=== PATIENT | female | born 1995 | race Caucasian/White ===

== ENCOUNTER 2016-11-22 12:47 | Emergency (ER) | payer BC, OTHER ==
[~2016-11-22] VITALS: Ht 157.5 cm; Wt 94.5 kg
[~2016-11-22 12:47] MED LIST: ETON1IMP2 INTRAD
[2016-11-22 12:51] VITALS: TEMP 36.6; Ht 157.5 cm; Wt 94.5 kg
[2016-11-22] MEDS ORDERED: SODIUM CHLORIDE 0.9% 1000ML 1,000 ML IV STA (13:26)
[2016-11-22] MEDS ORDERED: ONDANSETRON INJ 2 MG/ML 2 ML VIAL IV STA (13:26)
[2016-11-22] MEDS ORDERED: MoRPHine SULFATE 4 MG/ML 1 ML CARP\\VIAL IV STA (13:26)
[2016-11-22] MEDS ORDERED: JNLF153028 PO (13:38)
[2016-11-22 13:45] LABS: URINE APPEARANCE CLEAR (CLEAR); URINE BILIRUBIN NEG (NEG); URINE COLOR YELLOW; URINE NITRITE NEG (NEG); URINE PH 5.5 (4.5-7.5); URINE SPECIFIC GRAVITY 1.019 (1.000-1.030); UROBILINOGEN NEG (NEG)
[2016-11-22 13:46] LABS: MANUAL MICROSCOPIC REQUIRED? NO; REVIEW REQ? NO
[2016-11-22 13:58] LABS: BASO % 0.1 %; BASO ABS # 0.01 K/uL (0-0.2); COMPLETE YES; EOS % 0.9 %; HEMATOCRIT 37.4 % (37-47); IG% 0.1 %; LYMPH % 39.3 %; MEAN CELL VOLUME 86.8 fL (80-100); MEAN CORPUSCULAR HGB CONC 33.4 g/dl (32-36); MEAN PLATELET VOLUME 9.6 fL (7.4-10.4); MONO % 6.9 %; NEUT % 52.7 %; PLATELET COUNT 328 K/uL (130-400); RED BLOOD COUNT 4.31 M/uL (4.2-5.4); WHITE BLOOD COUNT 7.64 K/uL (4.8-10.8)
[2016-11-22 14:18] LABS: ALT/SGPT 14 U/L (12-78); AST/SGOT 7 U/L (15-37); BLOOD UREA NITROGEN 13 mg/dl (7-18); BUN/CREATININE RATIO 18.2 (10-20); CALCIUM 9.1 mg/dl (8.5-10.1); CARBON DIOXIDE 24 mmol/L (21-32); CHLORIDE 108 mmol/L (98-107); CREATININE 0.72 mg/dl (0.60-1.20); GLUCOSE 80 mg/dl (70-99); POTASSIUM 4.1 mmol/L (3.5-5.1); SODIUM 140 mmol/L (136-145)
[2016-11-22 14:21] LABS: ALKALINE PHOSPHATASE 50 U/L (45-117)
--- NOTE | 2016-11-22 14:34 | DIAGNOSTIC IMAGING REPORT ---
CHEST 2 VIEWS ROUTINE CLINICAL HISTORY: Chest pain radiating to the abdomen. COMPARISON STUDY: 04/28/2015 FINDINGS: The cardiac and mediastinal contours are normal. There is no evidence of focal pulmonary consolidation. There is no evidence of failure. No pleural effusions are visualized.[ No free intraperitoneal air is visualized. IMPRESSION: No active disease in the chest. Electronically signed by: Keron Pittman M.D. 11/22/2016 2:33 PM Dictated Date/Time: 11/22/2016 2:32 PM
--- NOTE | 2016-11-22 15:03 | DIAGNOSTIC IMAGING REPORT ---
Right upper quadrant ultrasound GALLBLADDER-ABD LIMITED CLINICAL HISTORY: ABDOMINAL PAIN/GI pain. Nausea. TECHNIQUE: Ultrasound COMPARISON STUDY: None FINDINGS: Normal gallbladder. Common bile duct 4 mm. Liver is uniform. Pancreas and right kidney are unremarkable. IMPRESSION: Normal study Electronically signed by: Lexa Bunn M.D. 11/22/2016 3:02 PM Dictated Date/Time: 11/22/2016 3:01 PM
[2016-11-22 15:29] VITALS: BP 116/62; PULSE 93; O2SAT 98
[2016-11-22] MEDS ORDERED: PRLSR20 PO (15:39)
--- NOTE | 2016-11-22 20:14 | EMERGENCY ROOM VISIT NOTE ---
ED Visit Note First contact with patient: 12:59 Chief Complaint: Abdominal and thoracic back pain. History of Present Illness: Ms. Taylor is a 21 year-old white female who ambulates into the ED accompanied by her mother and a female friend complaining of epigastric abdominal pain. Historically patient reports significant past medical history. Patient reports an acute onset of of thoracic back pain that started while standing approximately 2 hours ago while at work. The pain has been constant but has waxed and waned in intensity. She describes the pain as a cramping sensation. She reports the pain radiated around the abdomen bilaterally to the epigastric area; she also feels this epigastric pain is lower sternal pain. Her worst discomfort was rated 7/10 and currently she is 4/10. She has not identified any aggravating or alleviating factors related to the pain. She has not taken any medications for pain prior to arrival at the hospital. Associated with her pain she reports she became diaphoretic at its onset and she has been nauseated but has not vomited. Additionally she reports over the last few days she's been having 2-3 episodes of yellowish watery stools but has not had any today. Also she reports last evening she had mild urinary burning but once again has not had any today. Patient denies fevers, chills, skin eruptions, skin color changes, upper respiratory tract symptoms, shortness of breath, constipation, rectal bleeding, black/tarry stools, urinary symptoms, hematuria, vaginal bleeding, vaginal discharge. Review of Systems: As noted above in history of present illness. All body systems were reviewed and found to be negative as noted above. Past Medical History: Mononucleosis, pneumonia, status post wisdom teeth extraction. Current Medications: control. Allergies to Medications: Patient denies. Social History: Patient is currently employed; she feels safe in her home environment; she denies tobacco use and admits to social alcohol use. Physical Examination: Vital Signs: Date Time Temp Pulse Resp B/P Pulse Ox O2 Delivery O2 Flow Rate FiO2 11/22/16 15:29 93 16 116/62 98 Room Air 11/22/16 13:51 69 11/22/16 12:51 36.6 80 18 128/85 96 Room Air GENERAL: 21-year-old female in mild distress due to pain, nontoxic-appearing, afebrile and hemodynamically stable. NEUROLOGICAL: Awake, alert and oriented to person, place and time. Answering questions appropriately and following commands. Normal gait. Good hand eye coordination. SKIN: Warm, moist and pink. No soft tissue eruptions or trauma noted. HEENT: Atraumatic and normocephalic. PERRLA. Sclera white and conjunctiva pink. Oral cavity moist and pink. Pharynx is nonerythematous or edematous. Speech normal. No lymphadenopathy. Trachea midline. No jugular venous distention. BACK: No tenderness over the thoracic bony spine. No CVA tenderness. THORAX: Lungs sounds are clear to auscultation and equal bilaterally with symmetrical chest wall. No wheezing, rales or rhonchi. No crepitus, tenderness , subcutaneous air or deformities noted. HEART: Regular rate and rhythm. No gallops, rubs or murmurs are appreciated. ABDOMEN: Flat and soft with moderate epigastric tenderness and mild left upper quadrant and right upper quadrant tenderness. Positive bowel sounds in all quadrants. No guarding, rigidity or organomegaly. EXTREMITIES: Moves all extremities well on command and with purpose. All distal neurovascular statuses are intact and equal bilaterally. ED Course: Patient is assessed as noted above. Laboratory Testing: Test 11/22/16 13:00 11/22/16 13:30 Range/Units Urine Color YELLOW Urine Appearance CLEAR CLEAR Urine pH 5.5 4.5-7.5 Urine Specific Richards 1.019 1.000-1.030 Urine Protein NEG NEG Urine Glucose (UA) NEG NEG Urine Ketones NEG NEG Urine Occult Blood NEG NEG Urine Nitrite NEG NEG Urine Bilirubin NEG NEG Urine Urobilinogen NEG NEG Urine Leukocyte Esterase NEG NEG White Blood Count 7.64 4.8-10.8 K/uL Red Blood Count 4.31 4.2-5.4 M/uL Hemoglobin 12.5 12.0-16.0 g/dL Hematocrit 37.4 37-47 % Mean Corpuscular Volume 86.8 80-100 fL Mean Corpuscular Hemoglobin 29.0 25-34 pg Mean Corpuscular Hemoglobin Concent 33.4 32-36 g/dl Platelet Count 328 130-400 K/uL Mean Platelet Volume 9.6 7.4-10.4 fL Neutrophils (%) (Auto) 52.7 % Lymphocytes (%) (Auto) 39.3 % Monocytes (%) (Auto) 6.9 % Eosinophils (%) (Auto) 0.9 % Basophils (%) (Auto) 0.1 % Neutrophils # (Auto) 4.02 1.4-6.5 K/uL Lymphocytes # (Auto) 3.00 1.2-3.4 K/uL Monocytes # (Auto) 0.53 0.11-0.59 K/uL Eosinophils # (Auto) 0.07 0-0.5 K/uL Basophils # (Auto) 0.01 0-0.2 K/uL RDW Standard Deviation 42.0 36.4-46.3 fL RDW Coefficient of Variation 13.1 11.5-14.5 % Immature Granulocyte % (Auto) 0.1 % Immature Granulocyte # (Auto) 0.01 0.00-0.02 K/uL Sodium Level 140 136-145 mmol/L Potassium Level 4.1 3.5-5.1 mmol/L Chloride Level 108 98-107 mmol/L Carbon Dioxide Level 24 21-32 mmol/L Anion Gap 8.0 3-11 mmol/L Blood Urea Nitrogen 13 7-18 mg/dl Creatinine 0.72 0.60-1.20 mg/dl Est Creatinine Clear Calc Drug Dose 130.2 ml/min Estimated GFR () 136.8 Estimated GFR (Non- 118.0 BUN/Creatinine Ratio 18.2 10-20 Random Glucose 80 70-99 mg/dl Calcium Level 9.1 8.5-10.1 mg/dl Total Bilirubin 0.3 0.2-1 mg/dl Direct Bilirubin < 0.1 0-0.2 mg/dl Aspartate Amino Transf (AST/SGOT) 7 15-37 U/L Alanine Aminotransferase (ALT/SGPT) 14 12-78 U/L Alkaline Phosphatase 50 45-117 U/L Total Protein 7.2 6.4-8.2 gm/dl Albumin 3.7 3.4-5.0 gm/dl Lipase 151 73-393 U/L Urine : Negative. Chest X-Rays: Were read by myself and the radiologist showing no acute infiltrates, effusions or pneumothorax. Normal heart silhouette and bony anatomy. Right Upper Quadrant Ultrasound: Was reviewed by myself and read by the radiologist and interpreted as a normal study with a normal-appearing gallbladder and common bile duct, liver, pancreas and right kidney. Patient was hydrated with normal saline, and she received 4 mg of morphine IV for pain, 4 mg of Zofran IV for nausea. Patient was reassessed multiple times during her stay in the emergency department. Patient's case was reviewed with Dr. Rebollar; we agreed on diagnostic approach, treatment, disposition and plan. Patient was educated about today's findings and instructed on her treatment plan ; she verbalizes understanding and agreement with this plan. Clinical Impression: Thoracic back pain. Epigastric abdominal pain. Decision-Making: Initially my differential diagnosis I considered pancreatitis, hepatitis, cholecystitis, kidney stone, pyelonephritis, constipation, colitis and other causes. Disposition: Patient discharged home in stable condition accompanied by her mother; prior to departure she was reassessed and subjectively reported she was pain and symptom-free. Plan: Patient was encouraged use 650 mg of acetaminophen every 6 hours as needed for pain and to avoid stomach irritants. Patient was encouraged to stay well-hydrated. Patient was prescribed 20 mg of Prilosec once a day. Patient was encouraged to contact her PCP and reviewed today's ED visit and request follow-up care and treatment and possible referral to gastroenterology. Patient was encouraged return the ED for worsening/uncontrolled pain, vomiting, bloody vomitus, bloody stools, fevers or any new/concerning symptoms.
== END 2016-11-22 15:49 | disposition home or self-care (01) ==
LOC: C.EDB 12:49
DX: M54.9 Dorsalgia, unspecified (principal); R10.13 Epigastric pain

== ENCOUNTER → 2017-07-04 | Outpatient (CLI) | payer BC ==
[~2017-07-04] MED LIST changes: -ETON1IMP2 INTRAD; +JNLF153028 PO
--- NOTE | 2017-07-04 21:28 | DIAGNOSTIC IMAGING REPORT ---
PELVIC COMPLETE NON OB CLINICAL HISTORY: ADNEXAL PAIN LEFT PELVIC PAIN COMPARISON STUDY: None FINDINGS: The uterus measured 7.0 cm. The endometrial stripe measured 3 mm. The right ovary measured 2.2 cm with several small follicular cysts. Normal vascular flow. The left ovary measured 3.0 cm maximum dimension. 5.1 cm left ovarian cyst. Normal vascular flow. There is no ultrasonographic evidence of ovarian torsion. It should be noted that ovarian torsion can be present with normal Doppler ultrasonographic findings. There was no evidence of pathologic free pelvic fluid. IMPRESSION: 5.1 cm left ovarian cyst. Otherwise negative pelvic ultrasound. The above report was generated using voice recognition software. It may contain grammatical, syntax or spelling errors. Electronically signed by: Lexa Bunn M.D. 07/04/2017 9:27 PM Dictated Date/Time: 07/04/2017 9:25 PM
== END | disposition home or self-care (01) ==
LOC: C.ULTR 20:47
PROVIDERS: ATTEND Urology
DX: N83.202 Unspecified ovarian cyst, left side (principal)

== ENCOUNTER → 2017-07-04 | Outpatient (CLI) | payer BC ==
--- NOTE | 2017-07-04 18:28 | DIAGNOSTIC IMAGING REPORT ---
ABDOMEN COMPLETE (US) CLINICAL HISTORY: 21 years-old Female presenting with R10.2 Adnexal pain Left Adnexal pain. Please include the ovaries.. TECHNIQUE: Real-time grayscale and limited color Doppler ultrasound imaging of the abdomen was performed. COMPARISON: 11/22/2016. FINDINGS: Pancreas: Largely obscured due to overlying bowel gas. Liver: Mildly hyperechogenic parenchyma, although the right hemidiaphragm remains visible, likely indicating mild steatosis. The liver measures 15.3 cm in maximal sagittal dimension. No sonographic evidence of hepatic mass. Main portal vein patent with normal directional flow. Biliary: No intrahepatic biliary ductal dilatation. Common bile duct measures up to 8 mm in diameter. Gallbladder: No evidence of gallstones, gallbladder wall thickening, gallbladder distention, or pericholecystic fluid or inflammatory change. Spleen: Normal in echogenicity and size, measuring 10.6 cm in length. Kidneys: Normal in size and echogenicity. Right kidney measures 8.3 cm, and left kidney measures 10.1 cm. No hydronephrosis. Vasculature: Visualized portions of the IVC and abdominal aorta normal. Ascites: None. IMPRESSION: Apparent extrahepatic biliary ductal dilatation without evidence of cholelithiasis. This may be artifactual due to limited sonographic window. Electronically signed by: Wil Gore M.D. 07/04/2017 6:27 PM Dictated Date/Time: 07/04/2017 6:24 PM
== END | disposition home or self-care (01) ==
LOC: C.ULTR 16:22
PROVIDERS: ATTEND Urology
DX: R10.2 Pelvic and perineal pain (principal)

== ENCOUNTER → 2017-10-22 | Outpatient (CLI) | payer OTHER | END | disposition home or self-care (01) | LOC: C.PATHSPEC 16:59 | PROVIDERS: ATTEND Nurse Practitioner Adult Health | DX: R31.0 Gross hematuria (principal); R82.8 Abnormal findings on cytological and histological examination of urine ==

== ENCOUNTER → 2017-10-22 | Outpatient (CLI) | payer OTHER ==
[~2017-10-22] MED LIST changes: +OPTIRAY 320 IV PRN
--- NOTE | 2017-10-22 16:47 | DIAGNOSTIC IMAGING REPORT ---
ABD/PELVIS COMBO CLINICAL HISTORY: 22 years-old Female presenting with GROSS HEMATURIA, painless hematuria. TECHNIQUE: Multidetector CT of the abdomen and pelvis was performed before and after the administration of intravenous contrast. IV contrast: 120 mL of Optiray 320. A dose lowering technique was used consistent with the principles of ALARA (as low as reasonably achievable). COMPARISON: Plain radiograph of the abdomen from 03/25/2016. CT DOSE (mGy.cm): The estimated cumulative dose is 2301.43 mGycm. FINDINGS: Design Engineering Intern topogram: Unremarkable. Lung bases: Minimal basilar opacities, likely atelectasis. Normal heart size. No pericardial or pleural effusion. Liver: Normal morphology. Normal density. No focal lesion. Patent hepatic vasculature. Biliary: No intrahepatic or extrahepatic biliary ductal dilatation. Gallbladder decompressed. Pancreas: Normal. Spleen: Normal. Adrenal glands: Normal. Kidneys and ureters: Normal enhancement of the kidneys. Normal excretion bilaterally. No nephrolithiasis. No hydronephrosis. No filling defects within the urinary collecting systems. The ureters are nondilated. No urothelial thickening. No obstructing calculus or mass in the ureters. Bladder: Allowing for underdistention of the bladder, the bladder is grossly normal. Pelvic organs: Uterus and ovaries normal. Bowel: The cecum is medialized. No bowel obstruction. The appendix is normal and located within the left upper quadrant. Peritoneal cavity: No free fluid or intraperitoneal gas. Lymph nodes: No enlarged lymph nodes in the abdomen or pelvis. Vasculature: Aorta and IVC patent and normal in caliber. Abdominal wall: Normal. Musculoskeletal: Normal. IMPRESSION: 1. No nephrolithiasis or hydronephrosis. No solid renal or urothelial mass. Normal CT evaluation of the genitourinary tract. The bladder is incompletely distended somewhat limiting evaluation. 2. No acute intra-abdominal pathology. Electronically signed by: Wil Gore M.D. 10/22/2017 4:46 PM Dictated Date/Time: 10/22/2017 4:41 PM
== END | disposition home or self-care (01) ==
LOC: C.CTS 15:54
PROVIDERS: ATTEND Nurse Practitioner Adult Health
DX: R31.0 Gross hematuria (principal)

== ENCOUNTER 2023-06-10 07:33 | Inpatient (IN) ==
[2023-06-10] MEDS ORDERED: LIDOCAINE 1% LOCAL 20 ML VIAL INFIL PRN (08:44)
[2023-06-10] MEDS ORDERED: OXYTOCIN 30 UNITS/NSS 30 UNITS/500 ML BAG IV PRN (08:44)
--- NOTE | 2023-06-10 09:06 | History & Physical Report ---
Date of Service June 10, 2023 Assessment & Plan (1) Encounter for induction of labor: Plan 27 y/o female currently at 39 2/7 WGA with an GUERRERO 06/15/23 as determined by LMP, who is here for IOL: Pitocin AROM when indicated Monitor FHT, category 1 Rh + GBS negative Admission and Anticipated Discharge Date Admission Date: June 10, 2023 History of Present Illness Primary Care Provider: Niki Hoffman MD 27 y/o female currently at 39 2/7 WGA with an GUERRERO 06/15/23 as determined by LMP, who is here for IOL: complicated by: maternal obesity Had regular appointments with OB Denies Contractions + movement Denies Fluid loss Denies Vaginal bleeding External FHT and external uterine monitors used OB Labs: Blood Type A Positive 11/05/22 Antibody Screen NEGATIVE 11/05/22 Hemoglobin 11.5 g/dl (12.0-16.0) L 03/28/23 Hematocrit 34.9 % (37.0-47.0) L 03/28/23 Mean Corpuscular Volume 86.2 fL (80.0-100.0) 11/05/22 Platelet Count 357 K/uL (130-400) 11/05/22 Rubella IgG Antibody Immune (Immune) 11/05/22 Rapid Plasma Reagin Nonreactive (Nonreactive) 11/05/22 Hepatitis B Surface Antigen. NON-REACTIVE (NON-REACTIVE) 11/05/22 Hepatitis C Antibody (EIA) NON-REACTIVE (NON-REACTIVE) 11/05/22 HIV (1&2) Ag and Ab Confirmation NON-REACTIVE (NON-REACTIVE) 11/05/22 Glucose 1 Hour 50 gm Load 143 mg/dl (70-130) H 03/28/23 OB Optional Labs: Chlamydia trachomatis RNA Not Detected (NotDetected) 11/05/22 Neisseria gonorrhoeae RNA Not Detected (NotDetected) 11/05/22 Thyroid Stimulating Hormone (TSH) 2.635 uIu/ml (0.300-4.500) 07/26/22 Labs Reviewed: Declines carrier screen/cfdna--mln Declines quad screen--mln gbs neg--akh Allergies Allergy/AdvReac Type Severity Reaction Status Date / Time azithromycin Allergy facial Verified 06/10/23 08:04 hives Home Medications Medication Instructions Recorded Confirmed Type vit no.133-ferrous 1 tab PO 06/09/23 History fumarate 28 mg-folic acid 800 mcg tablet () Patient History Medical History (Updated 06/10/23 @ 09:04 by Errol Ackerman DO) Pneumonia Infectious mononucleosis Surgical History S/P wisdom tooth extraction Family History Mother Kidney stones Father Depression Lung disease Asthma Allergic rhinitis Brother Anxiety Depression Asthma Grandmother (Maternal) Diabetes Sister Allergic rhinitis Denies family history of Colon cancer Ovarian cancer Prostate cancer Myocardial infarction Breast cancer Social History Smoking Status: Never smoker Second Hand Exposure: No; Do You Dip or Chew Tobacco: No; Hx Alcohol Use: Yes Alcohol type: beer Alcohol Intake Frequency: Monthly or Less Hx Substance Use: No Preferred Language: Urdu Communication Ability: Effective Mattress Spring Encaser Required: No Beliefs That Will Affect Care: None marital status: marital status details: elias young (30) [phone] Current Living Situation: Spouse Current Living Situation Comment: lives with , 2 dogs, cat( litter changing), rabbit current occupational status: employed current occupation: PARK ATTENDANT in U[employer] Other Information That Helps Us Care for You: No Feels Safe at Home: Yes Safety Concerns: Feels Safe At This Time Childhood Exposure to Second-Hand Smoke: No Dental Care, Regularly: Yes Physical Activity Frequency: 1-2 Times per Week Seatbelt Use: always Sunscreen Use: Yes Review of Systems denies chest pain or SOB denies fever/chills denies BARRY/changes in vision denies dysuria denies LE pain Physical Exam Physical Exam: General: Alert and oriented. No acute distress Cardiac: Regular rate and rhythm, no murmurs appreciated Respiratory: Lungs clear to auscultation bilaterally, No increased work of breathing Abdominal: Soft, non-tender, non-distended. Bowel sounds present. Gravid uterus. Extremities: +bilateral LE edema, symmetrical bilaterally, no erythema, calves non-tender bilaterally Results & Data Vital Signs (Past 12 Hours) Vital Signs Temp Pulse Resp BP 06/10/23 07:44 37.1 C 18 06/10/23 07:43 83 126/78 Supervising Physician Co-Signing Physician Notes Resident Physician Supervision Note: I interviewed and examined the patient. Discussed with Dr. Solis and agree with findings and plan as documented in the note. Any exceptions or clarifications are listed here: Patient is a with iup at 39 2/7 weeks her for iol for obesity. Johnson fell out last night at 10pm. cx 4/75/-2. Pitocin induction, arom when indicated, epidural on demand. minimal contractions. Fetus category one. Documented By: Dot Astorga MD, FACOG Resident Activity Tracking Resident Involvement: Resident Care Provided Care Provided: OB Delivery
[2023-06-10] MEDS: LACTATED RINGER'S 1,000 ML IV PRN ×3 (09:14→20:45)
[2023-06-10] MEDS: OXYTOCIN 30 UNITS/NSS 30 UNITS/500 ML BAG IV PRN (09:15)
[2023-06-10 09:31] LABS: Hematocrit (blood only) 34.8 % (37.0-47.0); Hemoglobin 11.6 g/dl (12.0-16.0); Mean Corpuscular Hemoglobin 27.8 pg (25.0-34.0); Mean Corpuscular Hgb Conc 33.3 g/dL (32.0-36.0); Mean Corpuscular Volume 83.5 fL (80.0-100.0); Mean Platelet Volume 10.2 fL (9.4-12.4); Platelet Count 236 K/uL (130-400); RDW Coefficient of Variation 14.2 % (11.5-14.5); RDW Standard Deviation 42.9 fL (36.4-46.3); Red Blood Count 4.17 M/uL (4.20-5.40); White Blood Count 6.66 K/ul (4.8-10.8)
--- NOTE | 2023-06-10 13:30 | Labor Progress Brief Note ---
Date of Service June 10, 2023 Subjective noting contractions. Assessment & Plan (1) Encounter for induction of labor: (2) Obesity affecting : Trimester: third trimester Obesity type affecting : unspecified obesity Qualified Code(s): O99.213 - Obesity complicating , third trimester Plan arom done, fetus category one. epidural on demand Admission and Anticipated Discharge Date Admission Date: June 10, 2023 Physical Exam Physical Exam: cx--4/90/-2 arom--clear toco--q2-4min efm--130s wtih mod variability, accels to 160s, no decels Results & Data Vital Signs (Past 12 Hours) Vital Signs Temp Pulse Resp BP 06/10/23 13:18 69 127/75 06/10/23 12:18 65 120/70 06/10/23 12:00 18 06/10/23 12:00 36.7 C 18 06/10/23 11:18 63 110/58 L 06/10/23 10:18 62 98/56 L 06/10/23 09:20 71 110/73 06/10/23 07:44 37.1 C 18 06/10/23 07:43 83 126/78 Coding Level of Care Code None Diagnoses Encounter for induction of labor Z34.90 Obesity affecting in third trimester, unspecified obesity type O99.213 Trimester: third trimester Obesity type affecting : unspecified obesity
--- NOTE | 2023-06-10 18:49 | Labor Progress Brief Note ---
Date of Service June 10, 2023 Subjective noting some contractions Assessment & Plan (1) Encounter for induction of labor: (2) Obesity affecting : Trimester: third trimester Obesity type affecting : unspecified obesity Qualified Code(s): O99.213 - Obesity complicating , third trimester Plan iupc placed. Initial contractions not appearing to be adequate. Will increase pitocin max to 30. Fetus category one. Admission and Anticipated Discharge Date Admission Date: June 10, 2023 Physical Exam Physical Exam: cx--4/80/-2 iupc placed toco--q2-4min efm--130s with mod variability, accels to 150, no decels Results & Data Vital Signs (Past 12 Hours) Vital Signs Temp Pulse Resp BP 06/10/23 18:18 73 124/77 06/10/23 17:30 36.9 C 06/10/23 17:18 66 127/74 06/10/23 16:18 65 133/74 06/10/23 15:36 36.7 C 06/10/23 15:19 63 143/76 H 06/10/23 14:20 68 118/72 06/10/23 13:30 36.8 C 06/10/23 13:18 69 127/75 06/10/23 12:18 65 120/70 06/10/23 12:00 18 06/10/23 12:00 36.7 C 18 06/10/23 11:18 63 110/58 L 06/10/23 10:18 62 98/56 L 06/10/23 09:20 71 110/73 06/10/23 07:44 37.1 C 18 06/10/23 07:43 83 126/78 Coding Level of Care Code None Diagnoses Encounter for induction of labor Z34.90 Obesity affecting in third trimester, unspecified obesity type O99.213 Trimester: third trimester Obesity type affecting : unspecified obesity
[2023-06-10] MEDS ORDERED: SODIUM CHLORIDE 0.9% PF INJ 10 ML VIAL ONE (20:14)
[2023-06-10] MEDS ORDERED: fentaNYL citrate PF 100 MCG/2 ML VIAL ONE (20:14)
[2023-06-10] MEDS ORDERED: ePHEDrine sulfate 50 MG/ML AMP ONE (20:14)
[2023-06-10] MEDS ORDERED: fentANYL 2 MCG/ML BUPIVacaine 0.125%-NSS 100ML BAG ONE (20:14)
[2023-06-10] MEDS ORDERED: BUPIVACAINE 0.25% PF 30 ML VIAL ONE (20:15)
[2023-06-10] MEDS ORDERED: LIDOCAINE 2%/EPINEPHRINE 1:200,000 20 ML PF ONE (20:15)
--- NOTE | 2023-06-10 21:16 | Anesthesiology Consultation ---
Date of Service June 10, 2023 Assessment & Plan Chart Review Chart Review: Acceptable Risk for Labor Epidural Consults Requested none History Height/Weight Height: 5 ft 2 in Weight: 122.924 kg Allergies Allergy/AdvReac Type Severity Reaction Status Date / Time azithromycin Allergy facial Verified 06/10/23 08:04 hives Medications Home Medications Medication Instructions Recorded Confirmed Last Taken vit no.133-ferrous 1 tab PO 06/09/23 06/08/23 fumarate 28 mg-folic acid 800 mcg tablet () Active Medications Generic Name Dose Route Start Last Admin Trade Name Freq PRN Reason Stop Dose Admin Lactated Ringer's 1,000 mls @ 125 mls/hr 06/10/23 08:44 06/10/23 20:45 Lr IV 06/12/23 08:43 125 mls/hr .Q8H PRN Administration L&D Protocol Protocol Oxytocin 30 units in 500 mls @ 24 mls/hr 06/10/23 08:44 06/10/23 19:30 Pitocin 30 Units/Nss IV 06/12/23 08:43 1.44 units/hr .[id number] PRN 24 mls/hr Labor Induction/Augmentation Titration Protocol 1.44 UNITS/HR Past Medical History Medical History (Updated 06/10/23 @ 09:04 by Errol Ackerman DO) Pneumonia Infectious mononucleosis Past Family History Family History Mother Kidney stones Father Depression Lung disease Asthma Allergic rhinitis Brother Anxiety Depression Asthma Grandmother (Maternal) Diabetes Sister Allergic rhinitis Denies family history of Colon cancer Ovarian cancer Prostate cancer Myocardial infarction Breast cancer Past Surgical History Surgical History S/P wisdom tooth extraction Social History Smoking Status: Never smoker Do You Dip or Chew Tobacco: No Hx Alcohol Use: Yes Alcohol type: beer Hx Substance Use: No Physical Exam Vital Signs Last Vital Signs Temp 36.7 C 06/10/23 20:45 Pulse 69 06/10/23 21:15 Resp 18 06/10/23 21:00 BP 109/60 06/10/23 21:12 Pulse Ox 98 06/10/23 21:15 Testing Laboratory Results 06/10/23 08:35 Blood Type A Positive 06/10/23 08:32 Antibody Screen NEGATIVE 06/10/23 08:32
[2023-06-10] MEDS ORDERED: ROPIVACAINE 0.5% PF 5 MG/ML 20 ML VIAL EPI PRN (21:17)
[2023-06-10] MEDS ORDERED: BUPIVACAINE 0.25% PF 30 ML VIAL EPI PRN (21:17)
[2023-06-10] MEDS ORDERED: NALOXONE HCL 1 MG in SODIUM CHLORIDE 0.9% 1,000 ML IV PRN (21:17)
[2023-06-10] MEDS ORDERED: SODIUM CHLORIDE 0.9% PF INJ 10 ML VIAL EPI STA (21:17)
[2023-06-10] MEDS ORDERED: NALOXONE HCL 0.4 MG/1 ML VIAL/CARP IV PRN (21:17)
[2023-06-10] MEDS ORDERED: NALBUPHINE HCL 5 MG in SYRINGE 0 ML IV PRN (21:17)
[2023-06-10] MEDS ORDERED: fentaNYL citrate PF 100 MCG/2 ML VIAL EPI PRN (21:17)
[2023-06-10] MEDS ORDERED: BUPIVACAINE 0.25% PF 30 ML VIAL EPI STA (21:17)
[2023-06-10] MEDS ORDERED: diphenhydrAMINE 50 MG/ML VIAL IV PRN (21:17)
[2023-06-10] MEDS ORDERED: LIDOCAINE 2%/EPINEPHRINE 1:200,000 20 ML PF EPI STA (21:17)
[2023-06-10] MEDS ORDERED: ONDANSETRON INJ 2 MG/ML 2 ML VIAL IV PRN (21:17)
[2023-06-10] MEDS ORDERED: SODIUM CHLORIDE 0.9% PF INJ 10 ML VIAL EPI PRN (21:17)
[2023-06-10] MEDS ORDERED: ePHEDrine sulfate 50 MG/ML AMP IV PRN (21:17)
[2023-06-10] MEDS ORDERED: LIDOCAINE 2% MPF LOCAL 5 ML VIAL EPI PRN (21:17)
[2023-06-10] MEDS ORDERED: fentaNYL citrate PF 100 MCG/2 ML VIAL EPI STA (21:17)
--- NOTE | 2023-06-10 21:42 | Labor Progress Brief Note ---
Date of Service June 10, 2023 Subjective received epidural, shaky, comfortable Assessment & Plan (1) Encounter for induction of labor: (2) Obesity affecting : Trimester: third trimester Obesity type affecting : unspecified obesity Qualified Code(s): O99.213 - Obesity complicating , third trimester Plan now comfortable with epidural. fetus category one. The iupc is unfortunately not working well. We have tried multiple things to trouble shoot and have not been able to get it to trace well. Per nursing , contractions palpating firm. When first placed, did seem to be working and contractions were not adequate. Plan to max pit at 30 and stay there for 3 or so hours. If no change, then plan to half pit and go up again. Fetus is tolerating contractions well and the contraction pattern is more reasonable and not so dysfunctional appearing. Explained to the patient and they are agreeable to the plan. Admission and Anticipated Discharge Date Admission Date: June 10, 2023 Physical Exam Physical Exam: cx--5/90/-2 toco--q2-3min, pit at 24 efm--130s with mod variabiltiy, accels to 150s,. +scalp stim, no decels Results & Data Vital Signs (Past 12 Hours) Vital Signs Temp Pulse Resp BP Pulse Ox 06/10/23 21:35 73 99 06/10/23 21:30 66 99 06/10/23 21:28 75 105/54 L 06/10/23 21:25 70 103/50 L 100 06/10/23 21:20 70 98 06/10/23 21:18 82 129/65 06/10/23 21:15 69 98 06/10/23 21:12 68 109/60 06/10/23 21:10 74 16 99 06/10/23 21:09 73 113/57 L 06/10/23 21:07 63 104/56 L 06/10/23 21:06 63 110/56 L 06/10/23 21:04 74 118/68 06/10/23 21:03 71 86 L 06/10/23 21:02 74 100 06/10/23 21:01 72 135/72 06/10/23 21:00 67 18 140/78 06/10/23 20:57 75 100 06/10/23 20:52 70 83 L 06/10/23 20:49 68 86 L 06/10/23 20:47 68 100 06/10/23 20:45 20 06/10/23 20:45 36.7 C 20 06/10/23 20:42 65 100 06/10/23 20:40 65 83 L 06/10/23 20:37 62 100 06/10/23 20:32 62 100 06/10/23 20:29 65 89 L 06/10/23 20:27 69 96 06/10/23 20:22 68 100 06/10/23 20:21 65 83 L 06/10/23 20:18 71 114/66 06/10/23 19:18 61 132/67 06/10/23 19:00 36.7 C 18 06/10/23 18:55 59 L 137/76 06/10/23 18:18 73 124/77 06/10/23 17:30 36.9 C 06/10/23 17:18 66 127/74 06/10/23 16:18 65 133/74 06/10/23 15:36 36.7 C 06/10/23 15:19 63 143/76 H 06/10/23 14:20 68 118/72 06/10/23 13:30 36.8 C 06/10/23 13:18 69 127/75 06/10/23 12:18 65 120/70 06/10/23 12:00 18 06/10/23 12:00 36.7 C 18 06/10/23 11:18 63 110/58 L 06/10/23 10:18 62 98/56 L Coding Level of Care Code None Diagnoses Encounter for induction of labor Z34.90 Obesity affecting in third trimester, unspecified obesity type O99.213 Trimester: third trimester Obesity type affecting : unspecified obesity
--- NOTE | 2023-06-11 02:12 | Labor Progress Brief Note ---
Date of Service June 11, 2023 Subjective noting constant pressure and feels this is painful. She is suspicious it may be the catheter Assessment & Plan (1) Encounter for induction of labor: (2) Obesity affecting : Trimester: third trimester Obesity type affecting : unspecified obesity Qualified Code(s): O99.213 - Obesity complicating , third trimester Plan Has made cervical change albeit slow. But baby is definitely lower in the pelvis and completely effaced. Patient requesting gomez out, will comply but made patient aware that need for cont straight cath will increase her risk for bladder infection, she expresses understanding. fetus category one. Cont with pit at 30 for now. Admission and Anticipated Discharge Date Admission Date: June 10, 2023 Physical Exam Physical Exam: cx--6/100/-1 toco--q2-3min, pit at 30 efm--130s wtih mod variability, accels to 150s, no decels Results & Data Vital Signs (Past 12 Hours) Vital Signs Temp Pulse Resp BP Pulse Ox 06/11/23 02:05 93 H 99 06/11/23 02:03 80 130/63 06/11/23 02:00 85 100 06/11/23 01:55 76 98 06/11/23 01:50 86 98 06/11/23 01:48 82 129/61 06/11/23 01:45 87 100 06/11/23 01:40 86 98 06/11/23 01:35 76 100 06/11/23 01:34 77 136/66 06/11/23 01:30 81 100 06/11/23 01:25 84 100 06/11/23 01:20 96 H 153/65 H 100 06/11/23 01:18 93 H 186/131 H 06/11/23 01:15 84 100 06/11/23 01:10 90 100 06/11/23 01:05 88 100 06/11/23 01:00 36.8 C 101 H 16 91 06/11/23 00:59 97 H 87 L 06/11/23 00:55 87 99 06/11/23 00:50 66 97 06/11/23 00:49 65 130/71 06/11/23 00:45 65 97 06/11/23 00:40 65 96 06/11/23 00:35 61 97 06/11/23 00:32 67 110/62 06/11/23 00:30 61 97 06/11/23 00:25 63 97 06/11/23 00:20 68 98 06/11/23 00:19 65 107/60 06/11/23 00:15 72 99 06/11/23 00:10 62 99 06/11/23 00:05 59 L 100 06/11/23 00:03 60 115/66 06/11/23 00:00 60 99 06/10/23 23:57 16 06/10/23 23:57 16 06/10/23 23:55 59 L 100 06/10/23 23:50 64 100 06/10/23 23:48 68 111/62 06/10/23 23:45 68 99 06/10/23 23:40 61 99 06/10/23 23:35 64 99 06/10/23 23:34 63 103/59 L 06/10/23 23:30 58 L 99 06/10/23 23:25 60 100 06/10/23 23:20 59 L 100 06/10/23 23:18 63 113/55 L 06/10/23 23:15 63 100 06/10/23 23:10 65 100 06/10/23 23:05 71 99 06/10/23 23:01 18 06/10/23 23:01 37.4 C 18 06/10/23 23:01 18 06/10/23 23:01 37.4 C 18 06/10/23 23:00 96 H 96 06/10/23 22:55 65 100 06/10/23 22:50 63 100 06/10/23 22:49 68 112/57 L 06/10/23 22:45 66 99 06/10/23 22:40 64 100 06/10/23 22:35 64 100 06/10/23 22:34 68 104/58 L 06/10/23 22:30 64 100 06/10/23 22:25 70 100 06/10/23 22:20 71 100 06/10/23 22:18 81 111/55 L 06/10/23 22:15 65 97 06/10/23 22:10 64 98 06/10/23 22:05 66 99 06/10/23 22:03 62 104/53 L 06/10/23 22:00 62 99 06/10/23 21:55 59 L 100 06/10/23 21:50 65 100 06/10/23 21:49 68 111/58 L 06/10/23 21:45 66 100 06/10/23 21:42 18 06/10/23 21:42 18 06/10/23 21:40 82 99 06/10/23 21:38 92 H 83 L 06/10/23 21:35 73 99 06/10/23 21:30 66 99 06/10/23 21:28 75 105/54 L 06/10/23 21:25 70 103/50 L 100 06/10/23 21:20 70 98 06/10/23 21:18 82 129/65 06/10/23 21:15 69 18 98 06/10/23 21:12 68 109/60 06/10/23 21:10 74 16 99 06/10/23 21:09 73 113/57 L 06/10/23 21:07 63 104/56 L 06/10/23 21:06 63 110/56 L 06/10/23 21:04 74 118/68 06/10/23 21:03 71 86 L 06/10/23 21:02 74 100 06/10/23 21:01 72 135/72 06/10/23 21:00 67 18 140/78 06/10/23 20:57 75 100 06/10/23 20:52 70 83 L 06/10/23 20:49 68 86 L 06/10/23 20:47 68 100 06/10/23 20:45 20 06/10/23 20:45 36.7 C 20 06/10/23 20:42 65 100 06/10/23 20:40 65 83 L 06/10/23 20:37 62 100 06/10/23 20:32 62 100 06/10/23 20:29 65 89 L 06/10/23 20:27 69 96 06/10/23 20:22 68 100 06/10/23 20:21 65 83 L 06/10/23 20:18 71 114/66 06/10/23 19:18 61 132/67 06/10/23 19:00 36.7 C 18 06/10/23 18:55 59 L 137/76 06/10/23 18:18 73 124/77 06/10/23 17:30 36.9 C 06/10/23 17:18 66 127/74 06/10/23 16:18 65 133/74 06/10/23 15:36 36.7 C 06/10/23 15:19 63 143/76 H 06/10/23 14:20 68 118/72 Coding Level of Care Code None Diagnoses Encounter for induction of labor Z34.90 Obesity affecting in third trimester, unspecified obesity type O99.213 Trimester: third trimester Obesity type affecting : unspecified obesity
[2023-06-11] MEDS ORDERED: NURSING L&D Epidural Breakthrough Pain Update ONE (02:39)
[2023-06-11] MEDS: LACTATED RINGER'S 1,000 ML IV PRN ×2 (04:13→12:25)
[2023-06-11] MEDS: fentANYL 2 MCG/ML BUPIVacaine 0.125%-NSS 100ML BAG EPI PRN ×2 (04:19→09:41)
--- NOTE | 2023-06-11 05:53 | Labor Progress Brief Note ---
Date of Service June 11, 2023 Subjective Noting some constant left sided pain Assessment & Plan (1) Encounter for induction of labor: (2) Obesity affecting : Trimester: third trimester Obesity type affecting : unspecified obesity Qualified Code(s): O99.213 - Obesity complicating , third trimester Plan Definite change in the last few hours. However, contractions have spaced and become more dysfunction. With that , would plan to half the pit and start increasing again. fetus category one. I suspect it is going to be a tight fit and we had a conversation that I can make anyone 10cm but pushing out the baby is another process. Will redose epidural and get her more comfortable. Admission and Anticipated Discharge Date Admission Date: June 10, 2023 Physical Exam Physical Exam: cx--8/100/0--molding head toco--very difficult contraction pattern, with some spacing and now appears dysfunctional again. efm--140s with mod variability, accels to 150s, no decels Results & Data Vital Signs (Past 12 Hours) Vital Signs Temp Pulse Resp BP Pulse Ox 06/11/23 05:45 77 98 06/11/23 05:40 83 98 06/11/23 05:35 81 100 06/11/23 05:32 73 136/56 L 06/11/23 05:30 79 99 06/11/23 05:25 69 97 06/11/23 05:20 77 100 06/11/23 05:19 71 135/60 06/11/23 05:15 68 99 06/11/23 05:10 68 100 06/11/23 05:05 65 99 06/11/23 05:03 61 125/73 06/11/23 05:00 67 100 06/11/23 04:55 64 100 06/11/23 04:50 68 99 06/11/23 04:45 93 H 99 06/11/23 04:40 74 100 06/11/23 04:35 76 100 06/11/23 04:34 75 131/61 06/11/23 04:30 70 100 06/11/23 04:29 78 84 L 06/11/23 04:25 77 98 06/11/23 04:20 80 99 06/11/23 04:18 75 118/59 L 06/11/23 04:15 80 98 06/11/23 04:14 16 06/11/23 04:14 16 06/11/23 04:10 86 99 06/11/23 04:05 90 100 06/11/23 04:02 81 120/59 L 06/11/23 04:00 88 100 06/11/23 03:55 87 99 06/11/23 03:50 86 98 06/11/23 03:48 87 118/57 L 06/11/23 03:45 101 H 99 06/11/23 03:40 81 96 06/11/23 03:35 79 96 06/11/23 03:33 73 112/65 06/11/23 03:30 78 96 06/11/23 03:25 74 95 06/11/23 03:20 74 95 06/11/23 03:17 83 106/59 L 06/11/23 03:15 78 95 06/11/23 03:10 76 95 06/11/23 03:05 76 95 06/11/23 03:03 78 107/56 L 06/11/23 03:01 16 06/11/23 03:01 36.8 C 16 06/11/23 03:00 72 95 06/11/23 02:55 73 95 06/11/23 02:50 72 94 06/11/23 02:47 85 106/58 L 06/11/23 02:45 80 96 06/11/23 02:40 73 95 06/11/23 02:35 76 96 06/11/23 02:33 86 103/56 L 06/11/23 02:30 77 96 06/11/23 02:25 77 97 06/11/23 02:20 83 115/61 97 06/11/23 02:15 80 97 06/11/23 02:10 91 H 99 06/11/23 02:05 93 H 99 06/11/23 02:03 80 130/63 06/11/23 02:00 85 100 06/11/23 01:55 76 98 06/11/23 01:50 86 98 06/11/23 01:48 82 129/61 06/11/23 01:45 87 100 06/11/23 01:40 86 98 06/11/23 01:35 76 100 06/11/23 01:34 77 136/66 06/11/23 01:30 81 100 06/11/23 01:25 84 100 06/11/23 01:20 96 H 153/65 H 100 06/11/23 01:18 93 H 186/131 H 06/11/23 01:15 84 100 06/11/23 01:10 90 100 06/11/23 01:05 88 100 06/11/23 01:00 36.8 C 101 H 16 91 06/11/23 00:59 97 H 87 L 06/11/23 00:55 87 99 06/11/23 00:50 66 97 06/11/23 00:49 65 130/71 06/11/23 00:45 65 97 06/11/23 00:40 65 96 06/11/23 00:35 61 97 06/11/23 00:32 67 110/62 06/11/23 00:30 61 97 06/11/23 00:25 63 97 06/11/23 00:20 68 98 06/11/23 00:19 65 107/60 06/11/23 00:15 72 99 06/11/23 00:10 62 99 06/11/23 00:05 59 L 100 06/11/23 00:03 60 115/66 06/11/23 00:00 60 99 06/10/23 23:57 16 06/10/23 23:57 16 06/10/23 23:55 59 L 100 06/10/23 23:50 64 100 06/10/23 23:48 68 111/62 06/10/23 23:45 68 99 06/10/23 23:40 61 99 06/10/23 23:35 64 99 06/10/23 23:34 63 103/59 L 06/10/23 23:30 58 L 99 06/10/23 23:25 60 100 06/10/23 23:20 59 L 100 06/10/23 23:18 63 113/55 L 06/10/23 23:15 63 100 06/10/23 23:10 65 100 06/10/23 23:05 71 99 06/10/23 23:01 18 06/10/23 23:01 37.4 C 18 06/10/23 23:01 18 06/10/23 23:01 37.4 C 18 06/10/23 23:00 96 H 96 06/10/23 22:55 65 100 06/10/23 22:50 63 100 06/10/23 22:49 68 112/57 L 06/10/23 22:45 66 99 06/10/23 22:40 64 100 06/10/23 22:35 64 100 06/10/23 22:34 68 104/58 L 06/10/23 22:30 64 100 06/10/23 22:25 70 100 06/10/23 22:20 71 100 06/10/23 22:18 81 111/55 L 06/10/23 22:15 65 97 06/10/23 22:10 64 98 06/10/23 22:05 66 99 06/10/23 22:03 62 104/53 L 06/10/23 22:00 62 99 06/10/23 21:55 59 L 100 06/10/23 21:50 65 100 06/10/23 21:49 68 111/58 L 06/10/23 21:45 66 100 06/10/23 21:42 18 06/10/23 21:42 18 06/10/23 21:40 82 99 06/10/23 21:38 92 H 83 L 06/10/23 21:35 73 99 06/10/23 21:30 66 99 06/10/23 21:28 75 105/54 L 06/10/23 21:25 70 103/50 L 100 06/10/23 21:20 70 98 06/10/23 21:18 82 129/65 06/10/23 21:15 69 18 98 06/10/23 21:12 68 109/60 06/10/23 21:10 74 16 99 06/10/23 21:09 73 113/57 L 06/10/23 21:07 63 104/56 L 06/10/23 21:06 63 110/56 L 06/10/23 21:04 74 118/68 06/10/23 21:03 71 86 L 06/10/23 21:02 74 100 06/10/23 21:01 72 135/72 06/10/23 21:00 67 18 140/78 06/10/23 20:57 75 100 06/10/23 20:52 70 83 L 06/10/23 20:49 68 86 L 06/10/23 20:47 68 100 06/10/23 20:45 20 06/10/23 20:45 36.7 C 20 06/10/23 20:42 65 100 06/10/23 20:40 65 83 L 06/10/23 20:37 62 100 06/10/23 20:32 62 100 06/10/23 20:29 65 89 L 06/10/23 20:27 69 96 06/10/23 20:22 68 100 06/10/23 20:21 65 83 L 06/10/23 20:18 71 114/66 06/10/23 19:18 61 132/67 06/10/23 19:00 36.7 C 18 06/10/23 18:55 59 L 137/76 06/10/23 18:18 73 124/77 Coding Level of Care Code None Diagnoses Encounter for induction of labor Z34.90 Obesity affecting in third trimester, unspecified obesity type O99.213 Trimester: third trimester Obesity type affecting : unspecified obesity
--- NOTE | 2023-06-11 06:00 | Anesthesia Procedure Note ---
Date of Service June 11, 2023 Anesthesia Epidural Re-Dose Vital Signs Temp Pulse Resp BP Pulse Ox 36.8 C 80 16 139/65 98 06/11/23 03:01 06/11/23 05:55 06/11/23 04:14 06/11/23 05:48 06/11/23 05:55 Notes Pain Intensity: 9 Dilatation (cm): 8.0 Effacement (%): 100 Called by nursing to evaluate epidural as the patient is having increased pain. The epidural was re-dosed with the following medications (all medications via epidural route) after negative aspiration of the epidural catheter for CSF/HEME. 2% lidocaine 5ml with fentanyl 100mcg. After Epidural Re-Dose Mental Status: alert / awake / arousable Pain: improving with treatment Airway Patency, RR, SpO2: stable & adequate BP & HR: stable & adequate
--- NOTE | 2023-06-11 08:40 | Labor Progress Brief Note ---
Date of Service June 11, 2023 Call signed over at 8:30 in the morning patient has been induced since yesterday also required a cervical Johnson prior to that her progress has been slow she is currently assessed by myself and is 9 cm there is some significant molding palpated the bony part of the head is at 0 station at most. I reviewed the progress and discussed with previous provider there has been steady process albeit fairly slow The patient is having some discomfort on her back on 1 side anesthesia has redosed her epidural to make it as optimal as possible. I discussed with the patient that she is progressing slowly the hope is we can get her pushing when she is fully dilated I did discuss that there is a concern with slow progress of a section and what this would involve at this time we all agree that we will continue to try and encourage and expect vaginal delivery being aware that is a possibility Assessment & Plan Admission and Anticipated Discharge Date Admission Date: June 10, 2023 Results & Data Vital Signs (Past 12 Hours) Vital Signs Temp Pulse Resp BP Pulse Ox 06/11/23 08:37 86 139/76 06/11/23 08:35 72 98 06/11/23 08:30 76 98 06/11/23 08:25 74 97 06/11/23 08:21 88 119/69 06/11/23 08:20 71 96 06/11/23 08:15 74 96 06/11/23 08:13 71 114/63 06/11/23 08:10 92 H 96 06/11/23 08:05 110 H 98 06/11/23 08:00 75 18 94 06/11/23 07:55 74 95 06/11/23 07:54 76 112/71 06/11/23 07:50 72 95 06/11/23 07:45 71 96 06/11/23 07:40 67 97 06/11/23 07:38 76 124/59 L 06/11/23 07:35 77 96 06/11/23 07:30 74 18 95 06/11/23 07:25 74 95 06/11/23 07:23 76 119/59 L 06/11/23 07:20 91 H 99 06/11/23 07:15 98.1 F 18 06/11/23 07:15 93 H 98 06/11/23 07:10 91 H 97 06/11/23 07:07 101 H 116/68 06/11/23 07:05 98 H 100 06/11/23 07:00 84 97 06/11/23 06:55 92 H 99 06/11/23 06:52 85 124/66 06/11/23 06:50 77 95 06/11/23 06:45 79 95 06/11/23 06:40 76 95 06/11/23 06:37 79 122/68 06/11/23 06:35 79 95 06/11/23 06:30 81 95 06/11/23 06:25 90 97 06/11/23 06:22 73 117/64 06/11/23 06:20 86 97 06/11/23 06:15 88 98 06/11/23 06:10 89 97 06/11/23 06:07 77 134/73 06/11/23 06:05 80 97 06/11/23 06:03 77 132/87 06/11/23 06:01 66 134/63 06/11/23 06:00 18 06/11/23 06:00 99.1 F 18 06/11/23 06:00 68 97 06/11/23 05:59 75 133/61 06/11/23 05:55 80 98 06/11/23 05:50 65 96 06/11/23 05:48 65 139/65 06/11/23 05:45 77 98 06/11/23 05:40 83 98 06/11/23 05:35 81 100 06/11/23 05:32 73 136/56 L 06/11/23 05:30 79 99 06/11/23 05:25 69 97 06/11/23 05:20 77 100 06/11/23 05:19 71 135/60 06/11/23 05:15 68 99 06/11/23 05:10 68 100 06/11/23 05:05 65 99 06/11/23 05:03 61 125/73 06/11/23 05:00 67 100 06/11/23 04:55 64 100 06/11/23 04:50 68 99 06/11/23 04:45 93 H 99 06/11/23 04:40 74 100 06/11/23 04:35 76 100 06/11/23 04:34 75 131/61 06/11/23 04:30 70 100 06/11/23 04:29 78 84 L 06/11/23 04:25 77 98 06/11/23 04:20 80 99 06/11/23 04:18 75 118/59 L 06/11/23 04:15 80 98 06/11/23 04:14 16 06/11/23 04:14 16 06/11/23 04:10 86 99 06/11/23 04:05 90 100 06/11/23 04:02 81 120/59 L 06/11/23 04:00 88 100 06/11/23 03:55 87 99 06/11/23 03:50 86 98 06/11/23 03:48 87 118/57 L 06/11/23 03:45 101 H 99 06/11/23 03:40 81 96 06/11/23 03:35 79 96 06/11/23 03:33 73 112/65 06/11/23 03:30 78 96 06/11/23 03:25 74 95 06/11/23 03:20 74 95 06/11/23 03:17 83 106/59 L 06/11/23 03:15 78 95 06/11/23 03:10 76 95 06/11/23 03:05 76 95 06/11/23 03:03 78 107/56 L 06/11/23 03:01 16 06/11/23 03:01 98.2 F 16 06/11/23 03:00 72 95 06/11/23 02:55 73 95 06/11/23 02:50 72 94 06/11/23 02:47 85 106/58 L 06/11/23 02:45 80 96 06/11/23 02:40 73 95 06/11/23 02:35 76 96 06/11/23 02:33 86 103/56 L 06/11/23 02:30 77 96 06/11/23 02:25 77 97 06/11/23 02:20 83 115/61 97 06/11/23 02:15 80 97 06/11/23 02:10 91 H 99 06/11/23 02:05 93 H 99 06/11/23 02:03 80 130/63 06/11/23 02:00 85 100 06/11/23 01:55 76 98 06/11/23 01:50 86 98 06/11/23 01:48 82 129/61 06/11/23 01:45 87 100 06/11/23 01:40 86 98 06/11/23 01:35 76 100 06/11/23 01:34 77 136/66 06/11/23 01:30 81 100 06/11/23 01:25 84 100 06/11/23 01:20 96 H 153/65 H 100 06/11/23 01:18 93 H 186/131 H 06/11/23 01:15 84 100 06/11/23 01:10 90 100 06/11/23 01:05 88 100 06/11/23 01:00 98.2 F 101 H 16 91 06/11/23 00:59 97 H 87 L 06/11/23 00:55 87 99 06/11/23 00:50 66 97 06/11/23 00:49 65 130/71 06/11/23 00:45 65 97 06/11/23 00:40 65 96 06/11/23 00:35 61 97 06/11/23 00:32 67 110/62 06/11/23 00:30 61 97 06/11/23 00:25 63 97 06/11/23 00:20 68 98 06/11/23 00:19 65 107/60 06/11/23 00:15 72 99 06/11/23 00:10 62 99 06/11/23 00:05 59 L 100 06/11/23 00:03 60 115/66 06/11/23 00:00 60 99 06/10/23 23:57 16 06/10/23 23:57 16 06/10/23 23:55 59 L 100 06/10/23 23:50 64 100 06/10/23 23:48 68 111/62 06/10/23 23:45 68 99 06/10/23 23:40 61 99 06/10/23 23:35 64 99 06/10/23 23:34 63 103/59 L 06/10/23 23:30 58 L 99 06/10/23 23:25 60 100 06/10/23 23:20 59 L 100 06/10/23 23:18 63 113/55 L 06/10/23 23:15 63 100 06/10/23 23:10 65 100 06/10/23 23:05 71 99 06/10/23 23:01 18 06/10/23 23:01 99.3 F 18 06/10/23 23:01 18 06/10/23 23:01 99.3 F 18 06/10/23 23:00 96 H 96 06/10/23 22:55 65 100 06/10/23 22:50 63 100 06/10/23 22:49 68 112/57 L 06/10/23 22:45 66 99 06/10/23 22:40 64 100 06/10/23 22:35 64 100 06/10/23 22:34 68 104/58 L 06/10/23 22:30 64 100 06/10/23 22:25 70 100 06/10/23 22:20 71 100 06/10/23 22:18 81 111/55 L 06/10/23 22:15 65 97 06/10/23 22:10 64 98 06/10/23 22:05 66 99 06/10/23 22:03 62 104/53 L 06/10/23 22:00 62 99 06/10/23 21:55 59 L 100 06/10/23 21:50 65 100 06/10/23 21:49 68 111/58 L 06/10/23 21:45 66 100 06/10/23 21:42 18 06/10/23 21:42 18 06/10/23 21:40 82 99 06/10/23 21:38 92 H 83 L 06/10/23 21:35 73 99 06/10/23 21:30 66 99 06/10/23 21:28 75 105/54 L 06/10/23 21:25 70 103/50 L 100 06/10/23 21:20 70 98 06/10/23 21:18 82 129/65 06/10/23 21:15 69 18 98 06/10/23 21:12 68 109/60 06/10/23 21:10 74 16 99 06/10/23 21:09 73 113/57 L 06/10/23 21:07 63 104/56 L 06/10/23 21:06 63 110/56 L 06/10/23 21:04 74 118/68 06/10/23 21:03 71 86 L 06/10/23 21:02 74 100 06/10/23 21:01 72 135/72 06/10/23 21:00 67 18 140/78 06/10/23 20:57 75 100 12/05/23 20:52 70 83 L 06/10/23 20:49 68 86 L 06/10/23 20:47 68 100 06/10/23 20:45 20 06/10/23 20:45 98.1 F 20 06/10/23 20:42 65 100 06/10/23 20:40 65 83 L Coding Level of Care Code None
[2023-06-11] MEDS: OXYTOCIN 30 UNITS/NSS 30 UNITS/500 ML BAG IV PRN (10:15)
[2023-06-11] MEDS ORDERED: miSOPROStoL 200 MCG TAB ONE (13:13)
[2023-06-11] MEDS ORDERED: CARBOPROST TROMETHAMINE 250 MCG/ML AMPUL ONE (13:21)
--- NOTE | 2023-06-11 13:33 | Delivery Summary ---
Vaginal Delivery Summary Date of Service June 11, 2023 Vaginal Delivery Summary and 2nd Degree LAC Spontaneous vaginal delivery the patient had a several day induction beginning with the cervical Johnson 2 nights ago and then a day of induction with Pitocin rupture of membranes yesterday with Dr. Astorga at 830 this morning I received sign over and she was 9 cm that time she then progressed to fully dilated the baby then descended and she was able to push effectively she pushed the baby in occiput anterior position direct OA after the head was delivered there was a mild turtle sign there was also a tight nuchal cord using a Betrha clamp I clamped the cord and then cut to release. Initial attempts to release the anterior shoulder were unsuccessful Loren maneuver and suprapubic pressure were used and then I was able to get the anterior shoulder to release underneath the symphysis pubis and then the rest of the baby delivered easily live male required some immediate resuscitation but vigorous then after. In time from the delivery of the head cutting of the nuchal cord due to delivery of the baby was 70 seconds total No excessive force was used at all. No fundal pressure was used. She had a second-degree tear this was repaired with 3-0 Vicryl she also had some significant post bleeding this was related to uterine tone as the uterus palpated is soft initially IV Pitocin was used then 800 mcg of per rectum Cytotec. I then injected 0.25 mg of Hemabate directly into the lower uterine segment transvaginally. Care was taken to avoid direct IV injection this improved bleeding. Eventually this resulted in improved tone and decreased vaginal bleeding to a normal state estimated blood loss 600 mL Sponge and instrument counts were correct [facility] Vaginal Delivery Charge Delivery Type Details: and 2nd Degree LAC
[2023-06-11 13:40] LABS: Base Excess Cord Venous Blood -6.4 mEq/L (-7.7-1.9); Cord Venous Blood HCO3 18 mmol/L (18.4-26.8); Cord Venous Blood PCO2 34 mmHg (30.4-57.2); Cord Venous Blood PO2 38 mmHg (14.1-43.3); Cord Venous Blood pH 7.34 (7.20-7.44); O2 Saturation Cord Venous Bld 72.2 % (<68)
[2023-06-11 13:41] LABS: CO2 Cord Arterial Blood 44 mmHg (39.1-73.5); HCO3 Cord Arterial Blood 21 mmol/L (19.7-28.5); Oxygen Sat Cord Arterial Blood < 60.0 % (<60); PO2 Cord Arterial Blood 24 mmHg (4.1-31.7); pH Cord Arterial Blood 7.28 (7.1-7.38)
[2023-06-11] MEDS ORDERED: IBUPROFEN 600 MG TAB PO ONE (13:56)
[2023-06-11] MEDS ORDERED: bisacodyL 10 MG SUPP PR PRN (14:18)
[2023-06-11] MEDS ORDERED: HYDROCORTISONE ACETATE 25 MG SUPP PR PRN (14:18)
[2023-06-11] MEDS ORDERED: OXYTOCIN 30 UNITS/NSS 30 UNITS/500 ML BAG IV PRN (14:18)
[2023-06-11] MEDS ORDERED: CARBOPROST TROMETHAMINE 250 MCG/ML AMPUL IM ONE (14:18)
[2023-06-11] MEDS ORDERED: ACETAMINOPHEN 325 MG TAB PO PRN (14:18)
[2023-06-11] MEDS ORDERED: BENZOCAINE 20% SPRY 85 APPLN/85 GM CAN EXT PRN (14:18)
[2023-06-11] MEDS ORDERED: miSOPROStoL 200 MCG TAB PR ONE (14:18)
[2023-06-11] MEDS ORDERED: DIPHTHERIA/TETANUS/PERTUSSIS Vaccine (Tdap, Age 7+yrs) 0.5mL SYR/VL IM ONE (14:18)
[2023-06-11] MEDS ORDERED: oxyCODONE/ACETAMINOPHEN 5mg/325mg TAB PO PRN (14:18)
--- NOTE | 2023-06-11 14:32 | Anesthesia Procedure Note ---
Date of Service June 11, 2023 Anesthesia Post Epidural Note Vital Signs Vital Signs: Temp Pulse Resp BP Pulse Ox 37.1 C 74 18 139/66 95 06/11/23 13:36 06/11/23 14:22 06/11/23 13:36 06/11/23 14:22 06/11/23 13:36 Pain Intensity Vaginal: Pain Intensity: 4 Notes Mental Status: alert / awake / arousable and participated in evaluation Patient Amnestic to Procedure: No Nausea / Vomiting: adequately controlled Pain: adequately controlled Airway Patency, RR, SpO2: stable & adequate BP & HR: stable & adequate Hydration State: stable & adequate Neuraxial Anesthesia: was administered and sensory block is resolving Anesthetic Complications: no major complications apparent and Pt Satisfied with anesthetic care Epidural: Removed without complications and With tip intact
[2023-06-11] MEDS ORDERED: SODIUM CHLORIDE 0.9% 250 ML IV PRN (16:45)
[2023-06-11] MEDS: DOCUSATE SODIUM 100 MG CAP PO SCH (20:48)
[2023-06-11] MEDS: IBUPROFEN 600 MG TAB PO PRN (20:50)
--- NOTE | 2023-06-12 06:04 | Obstetrical Progress Note ---
Date of Service <Errol Ackerman DO - Last Filed: 06/12/23 06:50> June 12, 2023 Assessment & Plan <Errol Ackerman DO - Last Filed: 06/12/23 06:50> (1) care following vaginal delivery: Plan 27 year old , PPD#1: Eating well, voiding well, ambulating well Vitals reviewed, WNL Pain well controlled with Motrin Routine care - OOB, ambulation, diet progression as tolerated Will have 6 week follow up with Dr. Burch <Charisse Burch MD, FACOG - Last Filed: 06/12/23 08:03> (1) care following vaginal delivery: Subjective <Errol Ackerman DO - Last Filed: 06/12/23 06:50> Ambulation: ambulating normally Voiding: no voiding problems Passing Gas:: Yes Diet Tolerance:: regular diet Lochia:: Moderate Feeding Type:: breast feeding pain well controlled with motrin Review of Systems -Denies fever or chills -Denies dyspnea, chest pain, or palpitations -Denies dysuria -Denies headache or changes in vision Physical Exam <Errol Ackerman DO - Last Filed: 06/12/23 06:50> General: Alert and oriented. No acute distress Cardiac: Regular rate and rhythm, no murmurs appreciated Respiratory: Lungs clear to auscultation bilaterally, No increased work of breathing Abdominal: Soft, non-tender, non-distended. Bowel sounds present. Uterus: Uterine fundus firm, palpable below umbilicus Extremities: No lower extremity edema, calves non-tender bilaterally Results & Data <Errol Ackerman DO - Last Filed: 06/12/23 06:50> Vital Signs (Past 12 Hours) Vital Signs Temp Pulse Resp BP 06/12/23 03:20 36.5 C 91 H 18 140/85 06/11/23 23:21 37.2 C 102 H 18 126/79 06/11/23 20:47 37.0 C 96 H 18 128/82 Supervising Physician <Charisse Burch MD, FACOG - Last Filed: 06/12/23 08:03> Co-Signing Physician Notes Resident Physician Supervision Note: I was present with Dr. Ackerman during the history and exam. I discussed the case with the resident and agree with the findings and plan as documented in the note. Any exceptions or clarifications are listed here: [None] Documented By: Charisse Burch MD, FACOG Resident Activity Tracking <Errol Ackerman DO - Last Filed: 06/12/23 06:50> Resident Involvement: Resident Care Provided Care Provided: OB Delivery
[2023-06-12 06:40] LABS: Hematocrit (blood only) 24.8 % (37.0-47.0); Hemoglobin 8.4 g/dl (12.0-16.0); Mean Corpuscular Hgb Conc 33.9 g/dL (32.0-36.0); Mean Corpuscular Volume 82.7 fL (80.0-100.0); Mean Platelet Volume 9.6 fL (9.4-12.4); Platelet Count 179 K/uL (130-400); RDW Coefficient of Variation 14.3 % (11.5-14.5); RDW Standard Deviation 42.1 fL (36.4-46.3); White Blood Count 12.41 K/ul (4.8-10.8)
[2023-06-12] MEDS: DOCUSATE SODIUM 100 MG CAP PO SCH ×3 (08:28→20:06)
[2023-06-12] MEDS: IBUPROFEN 600 MG TAB PO PRN ×4 (08:28→20:06)
[2023-06-12] MEDS: PRENATAL VITAMIN 1 TAB PO SCH (08:28)
[2023-06-12] MEDS: bisacodyL 5 MG TABEC PO SCH ×2 (19:42→20:06)
--- NOTE | 2023-06-13 05:33 | Obstetrical Progress Note ---
Date of Service June 13, 2023 Assessment & Plan (1) care following vaginal delivery: Plan 27 year old , PPD#1: Eating well, voiding well, ambulating well Vitals reviewed, WNL Pain well controlled with Motrin Routine care - OOB, ambulation, diet progression as tolerated Will have 6 week follow up with Dr. Burch Physical Exam General: Alert and oriented. No acute distress Cardiac: Regular rate and rhythm, no murmurs appreciated Respiratory: Lungs clear to auscultation bilaterally, No increased work of breathing Abdominal: Soft, non-tender, non-distended. Bowel sounds present. Uterus: Uterine fundus firm, palpable below umbilicus Extremities: No lower extremity edema, calves non-tender bilaterally Results & Data Vital Signs (Past 12 Hours) Vital Signs Temp Pulse Resp BP Pulse Ox O2 Del Method 06/12/23 23:21 36.4 C L 82 18 137/71 100 Room Air 06/12/23 20:51 36.8 C 90 18 134/87 100 Room Air
--- NOTE | 2023-06-13 06:18 | Obstetrical Progress Note ---
Date of Service June 13, 2023 Assessment & Plan (1) care following vaginal delivery: Plan stable, routine care. breast, rhpos, ri. will dc home, instructions reviewed. f/u 6wk pp check reviewed. hgb pending this am. Day #:: 2 Subjective Ambulation: ambulating normally Voiding: no voiding problems Diet Tolerance:: regular diet Lochia:: Small Feeding Type:: breast feeding denies complaints. ready to go home. Constitutional: + as per Subjective / HPI Physical Exam Constitutional WD/WN, vitals as above Respiratory normal respiratory effort, lungs clear to auscultation Cardiovascular Rate/Rhythm: regular rate and regular rhythm Gastrointestinal (Abdomen) Inspection/Auscultation: abdomen normal to inspection Percussion/Palpation: abdomen soft Fundus firm 2cm down Musculoskeletal nt calves trace pedal edema Neurologic grossly normal Psychiatric A+Ox3, euthymic affect Results & Data Vital Signs (Past 12 Hours) Vital Signs Temp Pulse Resp BP Pulse Ox O2 Del Method 06/12/23 23:21 97.5 F L 82 18 137/71 100 Room Air 06/12/23 20:51 98.2 F 90 18 134/87 100 Room Air
[2023-06-13 07:34] LABS: Hematocrit (blood only) 25.1 % (37.0-47.0); Hemoglobin 8.3 g/dl (12.0-16.0)
[2023-06-13] MEDS: DOCUSATE SODIUM 100 MG CAP PO SCH (07:52)
[2023-06-13] MEDS: PRENATAL VITAMIN 1 TAB PO SCH (07:52)
[2023-06-13 07:55] VITALS: BP 132/82; PULSE 85; RESP 16; TEMP 97.7; O2SAT 99
== END 2023-06-13 13:03 | disposition home or self-care (01) | DRG 807 ==
LOC: 4S1 07:33 → 4E2 06-11 16:18

== ENCOUNTER 2025-07-04 06:55 | Inpatient (IN) ==
--- NOTE | 2025-06-20 12:07 | Anesthesiology Consultation ---
Date of Service June 20, 2025 Assessment & Plan (1) Encounter for pre-operative examination: - Per statistical consultant on 06/20/25: No known infectious disease contacts, current infectious disease symptoms in past 10 days or COVID positive test result in the past 30 days. Chart Review Chart Review: entry writer initiated History Surgery Operation Date: 07/04/25 09:05 Proposed Procedures p Section (Delivery of Baby Through Abdominal Incision) - Denisa Cifuentes, Height/Weight Height: 5 ft 2.5 in Weight: 126.099 kg Allergies Allergy/AdvReac Type Severity Reaction Status Date / Time azithromycin Allergy facial Verified 06/20/25 10:39 hives Medications Home Medications Medication Instructions Recorded Confirmed Last Taken vits no.133-ferrous 1 tab PO HS 06/09/23 06/20/25 06/08/23 fumarate 28 mg-folic acid 800 mcg tablet () acetone (urine) test (Ketone Urine #50 ea 04/29/25 06/15/25 Unknown Test strips) blood sugar diagnostic (Accu-Chek #150 ea 04/29/25 06/15/25 Unknown Guide test strips) blood-glucose meter (Accu-Chek #1 ea 04/29/25 06/15/25 Unknown Guide Glucose Meter) lancets (Accu-Chek Softclix #150 ea 04/29/25 06/15/25 Unknown Lancets) Past Medical History Medical History (Updated 06/20/25 @ 12:05 by Raquel Price PA-C) Allergy "found to be allergic to zithromax" Infectious mononucleosis hx, 2014, resolved Oral allergy syndrome hx Past Family History Family History Mother Kidney stones Father Depression Lung disease Asthma Allergic rhinitis Brother Anxiety Depression Asthma Grandmother (Maternal) Diabetes Sister Allergic rhinitis Denies family history of Colon cancer Ovarian cancer Prostate cancer Myocardial infarction Breast cancer Past Surgical History Surgical History S/P wisdom tooth extraction Social History Smoking Status: Never smoker Do You Dip or Chew Tobacco: No Hx Alcohol Use: Yes (socially only, not while ) Alcohol type: beer Hx Substance Use: No substance use type: does not use
--- NOTE | 2025-06-29 10:56 | History & Physical Report ---
Date of Service June 29, 2025 Assessment & Plan (1) History of shoulder dystocia in prior : Plan: Plan for section, reviewed consent/signed in office 06/29/25. History of Present Illness Primary Care Provider: Niki Hoffman MD 29yo with [facility] 07/09/25 with plans for primary section d/t history of shoulder dystocia. Obesity (BMI 40 and higher @ beginning of ) - 45.1 *Growth US @ 32wks *Weekly NSTs @ 34wks *BMI 40 or greater offer detailed/level II anatomy at [facility] - desires to have an MN *BMI 40 or above offer delivery by [facility]. GDM *Begin monthly Growth US's Hx of shoulder dystocia with first baby - at 36 4/7, baby measuring EFW 93%, AC 95% - will recheck Growth at 36wks gestation C/S SCHEDULED FOR 07/04/[address] SARABIA AND DR. LOWERY ASSIST Allergies Allergy/AdvReac Type Severity Reaction Status Date / Time azithromycin Allergy facial Verified 06/29/25 10:10 hives Home Medications Medication Instructions Recorded Confirmed Type vits no.133-ferrous 1 tab PO HS 06/09/23 06/29/25 History fumarate 28 mg-folic acid 800 mcg tablet () acetone (urine) test (Ketone Urine #50 ea 04/29/25 06/29/25 Rx Test strips) blood sugar diagnostic (Accu-Chek #150 ea 04/29/25 06/29/25 Rx Guide test strips) blood-glucose meter (Accu-Chek #1 ea 04/29/25 06/29/25 Rx Guide Glucose Meter) lancets (Accu-Chek Softclix #150 ea 04/29/25 06/29/25 Rx Lancets) Patient History Medical History Allergy "found to be allergic to zithromax" Infectious mononucleosis hx, 2014, resolved Oral allergy syndrome hx Surgical History S/P wisdom tooth extraction Family History Mother Kidney stones Father Depression Lung disease Asthma Allergic rhinitis Brother Anxiety Depression Asthma Grandmother (Maternal) Diabetes Sister Allergic rhinitis Denies family history of Colon cancer Ovarian cancer Prostate cancer Myocardial infarction Breast cancer Social History Smoking Status: Never smoker Second Hand Exposure: No; Do You Dip or Chew Tobacco: No; Hx Alcohol Use: Yes (socially only, not while ) Alcohol type: beer Alcohol Intake Frequency: Monthly or Less Hx Substance Use: No Preferred Language: Divehi Communication Ability: Effective Houseperson Required: No Beliefs That Will Affect Care: None marital status: marital status details: Luis Eduardo Welsh (32) [phone] Current Living Situation: Spouse and Family Current Living Situation Comment: lives with , 1 child, 2 dogs, rabbit, cat( litter changing) current occupational status: employed current occupation: [employer] in [facility] Feels Safe at Home: Yes Childhood Exposure to Second-Hand Smoke: No Dental Care, Regularly: Yes Physical Activity Frequency: 1-2 Times per Week Seatbelt Use: always Sunscreen Use: Yes Assistive Devices: None Review of Systems All systems reviewed & are unremarkable except as noted in HPI & below Physical Exam Physical Exam: FHT Cat 1, reactive NST in office 06/29 Constitutional: WD/WN, vitals as above Respiratory: normal respiratory effort, lungs clear to auscultation no respiratory distress Cardiovascular: Rate/Rhythm: regular rate and regular rhythm Gastrointestinal (Abdomen): Inspection/Auscultation: abdomen normal to inspection Percussion/Palpation: abdomen soft; abdomen nontender Gravid. No s/s chorio or abruption. Skin: no rashes, warm and dry Psychiatric: A+Ox3, euthymic affect Coding Level of Care Code None Diagnoses History of shoulder dystocia in prior Z87.59
[~2025-07-04 06:55] MED LIST changes: +DEXAMETHASONE SOD INJ 4 MG/ML VIAL ONE; -JNLF153028 PO; +MoRPHine SULFATE PF 1 MG/ML 10 ML AMP/VIAL ONE; +ONDANSETRON INJ 2 MG/ML 2 ML VIAL ONE; -OPTIRAY 320 IV PRN; +PHENYLEPHRINE HCL 25 MG/250 ML NSS IV ONE
[2025-07-04] MEDS ORDERED: SODIUM CHLORIDE 0.9% 100 ML IV PRN (07:11)
[2025-07-04] MEDS ORDERED: LACTATED RINGER'S 1,000 ML IV SCH ×3 (07:15→11:00)
[2025-07-04 07:47] LABS: Hematocrit (blood only) 33.4 % (37.0-47.0); Hemoglobin 11.2 g/dL (12.0-16.0); Mean Corpuscular Hemoglobin 27.7 pg (25.0-34.0); Mean Corpuscular Volume 82.5 fL (80.0-100.0); Platelet Count 235 K/uL (130-400); RDW Standard Deviation 44.6 fL (36.4-46.3); Red Blood Count 4.05 M/uL (4.20-5.40); White Blood Count 5.67 K/ul (4.8-10.8)
[2025-07-04] MEDS: ACETAMINOPHEN 500 MG TAB PO SCH (07:59)
[2025-07-04] MEDS: LACTATED RINGER'S 1,000 ML IV SCH (08:39)
--- NOTE | 2025-07-04 08:49 | History & Physical Bridge Note ---
Date of Service July 04, 2025 History & Physical Bridge Note I have examined the patient, reviewed the History & Physical and in the interval since the performance of the History & Physical I have noted the following changes of clinical significance: no changes noted
[2025-07-04] MEDS: CITRIC ACID/SODIUM CITRATE 15 ML UDC PO SCH (08:59)
[2025-07-04] MEDS: ceFAZolin 3,000 MG/72.5 ML BAG IV SCH (09:14)
[2025-07-04] MEDS ORDERED: NALBUPHINE HCL INJ 10 MG/ML AMP IV PRN (09:43)
[2025-07-04] MEDS ORDERED: NALOXONE HCL 0.4 MG/1 ML VIAL/CARP IV PRN (09:43)
[2025-07-04] MEDS ORDERED: PROMETHAZINE 6.25 MG/50.25 ML BAG IV PRN (09:43)
[2025-07-04] MEDS ORDERED: diphenhydrAMINE 50 MG/ML VIAL IV PRN (09:43)
[2025-07-04] MEDS ORDERED: NALOXONE HCL 1 MG in SODIUM CHLORIDE 0.9% 1,000 ML IV PRN (09:43)
[2025-07-04] MEDS ORDERED: HYDROmorphone INJ 0.5 MG/0.5 ML SYR IV PRN (09:43)
[2025-07-04] MEDS ORDERED: NALOXONE HCL 0.08 MG in SYRINGE 1.8 ML IV PRN (09:43)
[2025-07-04] MEDS ORDERED: DC INTRASPINAL MORPHINE SCH (09:45)
[2025-07-04] MEDS ORDERED: NO NARCOTICS OR SEDATIVES SCH (09:45)
[2025-07-04] MEDS ORDERED: PHENYLEPHRINE 100MCG/ML 5ML SYR ONE (10:17)
--- NOTE | 2025-07-04 10:36 | Operative Report ---
PG Post Operative Report Pre & Post Diagnosis Operation Date: 07/04/25 09:05 Pre-Op Diagnosis: (1) History of shoulder dystocia in prior : Post-Op Diagnosis: (1) History of shoulder dystocia in prior : I identified the patient and participated in the time-out.: Yes Procedure Operation Date: 07/04/25 09:05 Actual Procedures p Primary Low Transverse Section For delivery of live male child at 0944 - Denisa Cifuentes DO Surgeon Denisa Cifuentes DO Supervisor Electronics Inspection Mario Hicks MD Estimated Blood Loss 929 (QBL) Findings Consistent with Post-Op Diagnosis Normal appearing uterus, fallopian tubes, ovaries. Viable male , apgars 8/9. Weight 7#10oz. Specimens placenta, cord blood, cord gas Drains gomez clear yellow Anesthesia Type Spinal Complications none Disposition Accompanied Patient To Recovery: Yes Disposition: L&D Indications 29yo @ 39 2, with maternal request for section due to history of shoulder dystocia in prior and suspected large baby with this . Description of Procedure The patient was seen in her labor and delivery room, risks benefits and alternatives to surgery were reviewed. Informed consent obtained. Questions were answered. She was taken to the operating room, spinal anesthesia was administered. She was then prepared and draped in the usual sterile fashion in the supine position with a leftward tilt. Timeout was confirmed. A Pfannenstiel skin incision was made with a scalpel, and carried through to the underlying layer of fascia. Fascia was nicked at midline, and this incision was extended bilaterally. The superior aspect of the fascial incision was grasped with Martin clamps x2, elevated off the underlying rectus abdominis muscles, and dissected sharply and bluntly. In similar fashion, the inferior aspect of the fascial incision was dissected. The rectus abdominis muscles were , and the peritoneum was entered bluntly digitally. This was extended bilaterally. The bladder flap was taken down carefully using Metzenbaum scissors. Using a new scalpel, a low transverse uterine incision was created. Clear amniotic fluid noted. The was delivered from a cephalic presentation. The head delivered, followed by shoulders and body. Spontaneous cry on the field. The cord was doubly clamped and cut, and the infant was handed off to the waiting telex operator. A segment was retained for cord gases. Cord blood was obtained. The placenta was delivered spontaneously intact. The uterus was exteriorized, and cleared of all clots and debris. The hysterotomy incision was reapproximated using 0 Vicryl in a running locked stitch. A second layer of the same suture was used to imbricate the incision. Posterior uterus was evaluated and normal. The uterus was returned to the abdomen, and gutters were cleared of clots and debris. Excellent hemostasis was observed. The fascial incision was reapproximated using 0 Vicryl in a running stitch. The subcutaneous tissue was irrigated, and reapproximated using 2-0 plain gut in a running stitch. The skin was reapproximated using 4-0 Vicryl in a running subcuticular stitch. LIDYA dressing applied. The patient tolerated the procedure well, and will be taken to the recovery area in stable and good condition. I attest to the content of the Intraoperative Record and any orders documented therein. Any exceptions are noted below. OB Procedure Charges 24731
--- NOTE | 2025-07-04 10:44 | Anesthesiology Progress Note ---
Date of Service July 04, 2025 Anesthesia Post Procedure Vital Signs Vital Signs: Temp Pulse Resp BP Pulse Ox 07/04/25 10:43 80 92 07/04/25 10:41 79 92 07/04/25 10:36 93 07/04/25 10:36 76 07/04/25 10:36 75 120/62 94 07/04/25 07:21 36.8 C 90 20 121/68 07/04/25 07:18 90 121/68 Transfer of Care Handoff Completed per policy Notes Mental Status: alert / awake / arousable and participated in evaluation Patient Amnestic to Procedure: No Nausea / Vomiting: adequately controlled Pain: adequately controlled Airway Patency, RR, SpO2: stable & adequate BP & HR: stable & adequate Hydration State: stable & adequate Neuraxial Anesthesia: was administered and sensory block is resolving Anesthetic Complications: no major complications apparent and Pt Satisfied with anesthetic care
[2025-07-04] MEDS ORDERED: MAGNESIUM HYDROXIDE SUSP 30 ML UDC PO PRN (10:50)
[2025-07-04] MEDS ORDERED: CALCIUM CARBONATE 500 MG CHEWABLE TAB PO PRN (10:50)
[2025-07-04] MEDS ORDERED: SENNA 8.6 MG TAB PO PRN (10:50)
[2025-07-04] MEDS ORDERED: BENZOCAINE 20% SPRY 85 APPLN/85 GM CAN EXT PRN (10:50)
[2025-07-04] MEDS ORDERED: HYDROCORTISONE ACETATE 25 MG SUPP PR PRN (10:50)
[2025-07-04 11:01] LABS: Base Excess Cord Arterial Bld -3.3 mEq/L (-9-1.8); Base Excess Cord Venous Blood -3.3 mEq/L (-7.7-1.9); CO2 Cord Arterial Blood 51 mmHg (39.1-73.5); Cord Venous Blood PO2 40 mmHg (14.1-43.3); HCO3 Cord Arterial Blood 24 mmol/L (19.7-28.5); O2 Saturation Cord Venous Bld 73.3 % (<68); Oxygen Sat Cord Arterial Blood < 60.0 % (<60); PO2 Cord Arterial Blood < 20 mmHg (4.1-31.7); pH Cord Arterial Blood 7.28 (7.1-7.38)
[2025-07-04] MEDS: SODIUM CHLORIDE 0.9% 1,000 ML IV SCH (11:28)
[2025-07-04] MEDS: MoRPHine SULFATE PF 1 MG/ML 10 ML AMP/VIAL INT SPINAL ONE (11:28)
[2025-07-04] MEDS: DIPHTHER/TETAN/PERTUS Vaccine (Tdap, Adol/Adult) 0.5mL IM ONE (11:29)
[2025-07-04] MEDS: KETOROLAC 30 MG/ML VIAL IV SCH (11:41)
[2025-07-04] MEDS: OXYTOCIN 20 UNITS/LR 1,002 ML IV SCH (11:43)
[2025-07-04] MEDS: ONDANSETRON INJ 2 MG/ML 2 ML VIAL IV PRN (12:58)
[2025-07-04] MEDS: ACETAMINOPHEN 325 MG TAB PO SCH (16:34)
[2025-07-04] MEDS: LACTATED RINGER'S 500 ML IV PRN (17:21)
[2025-07-04] MEDS: SIMETHICONE 80 MG CHEW PO SCH (17:33)
[2025-07-04 20:35] LABS: Hematocrit (blood only) 27.7 % (37.0-47.0); Hemoglobin 9.3 g/dL (12.0-16.0)
[2025-07-04] MEDS: DOCUSATE SODIUM 100 MG CAP PO SCH (22:37)
[2025-07-05] MEDS ORDERED: diphenhydrAMINE 50 MG/ML VIAL IV PRN (03:44)
[2025-07-05] MEDS ORDERED: ONDANSETRON INJ 2 MG/ML 2 ML VIAL IV PRN (03:44)
[2025-07-05] MEDS ORDERED: diphenhydrAMINE Capsule 25 MG CAP PO PRN (03:44)
[2025-07-05] MEDS ORDERED: HYDROmorphone INJ 0.5 MG/0.5 ML SYR IV PRN (03:44)
[2025-07-05] MEDS ORDERED: PROMETHAZINE 12.5 MG/50.5 ML BAG IV PRN (03:44)
[2025-07-05] MEDS ORDERED: ACETAMINOPHEN 500 MG TAB PO SCH (06:00)
[2025-07-05] MEDS ORDERED: CITRIC ACID/SODIUM CITRATE 15 ML UDC PO SCH (06:00)
[2025-07-05 06:22] LABS: Hematocrit (blood only) 26.9 % (37.0-47.0); Hemoglobin 9.2 g/dL (12.0-16.0); Immature Granulocytes # (auto) 0.04 K/uL (0.01-0.20); Immature Granulocytes % (auto) 0.5 %; Mean Corpuscular Hemoglobin 28.4 pg (25.0-34.0); Mean Corpuscular Volume 83.0 fL (80.0-100.0); Platelet Count 202 K/uL (130-400); RDW Standard Deviation 45.0 fL (36.4-46.3); Red Blood Count 3.24 M/uL (4.20-5.40); White Blood Count 8.07 K/ul (4.8-10.8)
--- NOTE | 2025-07-05 06:51 | Obstetrical Progress Note ---
Date of Service July 05, 2025 Assessment & Plan (1) care following delivery: (2) History of shoulder dystocia in prior : (3) GDM (gestational diabetes mellitus): (4) Prior miscarriage with , antepartum: (5) Obesity affecting , antepartum: Plan 29 yo post- day 1 s/p . Fells well today. Vital signs stable Continue post- care Encourage ambulation and Pain controlled with ibuprofen Hgb stable Discharge home tommorow, follow up with Dr. Cifuentes in 6 weeks. Admission and Anticipated Discharge Date Admission Date: July 04, 2025 Subjective 29 yo post- day 1 s/p . Ambulation: ambulating normally Voiding: no voiding problems Passing Gas:: Yes Diet Tolerance:: regular diet Lochia:: Small Feeding Type:: breast feeding Current Pain Level:Slight pain. Resting comfortably this AM in NAD. Denies BARRY, CP, SOB, N/V/D, LE pain/swelling. Review of Systems Review of Systems: As per HPI. Physical Exam Physical Exam: General: patient resting comfortably, NAD, non-toxic in appearance, AA&O x 4, answers questions appropriately. Skin: warm, dry, intact HEENT: NC/AT, anicteric sclera, conjunctiva without injection, moist mucus membranes. Heart: +S1/S2, regular, no m/r/g Lungs: equal air entry bilaterally, no rales/rhonchi/wheezes Abd: +BS, soft, NT/ND, uterine fundus firm at umbilicus, caesarean incision C/D/I. Ext: warm, no clubbing/cyanosis or edema, Tony's neg. Results & Data Vital Signs (Past 12 Hours) Vital Signs Temp Pulse Resp BP Pulse Ox O2 Del Method 07/05/25 03:45 18 96 07/05/25 03:45 37.2 C 78 18 106/70 96 Room Air 07/05/25 01:30 16 96 07/05/25 00:00 16 97 07/04/25 23:37 18 96 07/04/25 22:37 20 92 07/04/25 22:37 37.2 C 76 20 104/66 92 Room Air 07/04/25 21:13 18 93 07/04/25 20:19 20 95 07/04/25 20:19 36.7 C 71 20 108/70 95 Room Air 07/04/25 19:20 16 94 Resident Activity Tracking Resident Involvement: Resident Care Provided Care Provided: Adult Hospital Medicine Resident Supervision Co-Signing Physician Notes Resident Physician Supervision Note: I interviewed and examined the patient. Discussed with Dr. Green and agree with findings and plan as documented in the note. Any exceptions or clarifications are listed here: POD#1 doing well, ambulating, eating,drinking ok. Pain control led. LIDYA dressing clean/dry/intact. Patient aware she will need to be seen in office next Friday for removal/eval of incision. Rec'd fluid bolus last night in response to decreased urine output - H/H checked, appropriate drop after C/S, vitals stable. This morning's H/H stable, urine output has improved overnight, patient feeling well. Documented By: Denisa Cifuentes, DO
[2025-07-05] MEDS: PRENATAL VITAMIN 1 TAB PO SCH (09:02)
[2025-07-05] MEDS: FERROUS SULFATE 325 MG TAB PO SCH (09:02)
[2025-07-05] MEDS ORDERED: KETOROLAC 30 MG/ML VIAL IV PRN (11:00)
[2025-07-05] MEDS: IBUPROFEN 600 MG TAB PO SCH (11:14)
[2025-07-05 20:27] VITALS: RESP 18
[2025-07-05] MEDS ORDERED: Nursing to Pharmacy Communication SCH (22:00)
[2025-07-05] MEDS: SODIUM CHLORIDE 0.65% NA SOLN 45 ML (OCEAN) ONE (22:03)
[2025-07-05] MEDS: guaiFENesin 600 MG TABCR PO STA (22:24)
[2025-07-06 06:12] LABS: Hematocrit (blood only) 27.3 % (37.0-47.0); Hemoglobin 8.9 g/dL (12.0-16.0)
--- NOTE | 2025-07-06 06:26 | Obstetrical Progress Note ---
Date of Service July 06, 2025 Assessment & Plan (1) care following delivery: (2) History of shoulder dystocia in prior : (3) GDM (gestational diabetes mellitus): (4) Prior miscarriage with , antepartum: (5) Obesity affecting , antepartum: Plan 29 yo post- day 2 s/p . Fells well today. Vital signs stable Continue post- care Encourage ambulation and Pain controlled with ibuprofen Hgb stable Discharge home today, follow up with Dr. Cifuentes in 6 weeks. Admission and Anticipated Discharge Date Admission Date: July 04, 2025 Supervising Physician Co-Signing Physician Notes Resident Physician Supervision Note: I interviewed and examined the patient. Discussed with Dr. Green and agree with findings and plan as documented in the note. Any exceptions or clarifications are listed here: stable doing well. eating, voiding, +flatus, no pain issues. breast feeding, no cp or sob, ambulating without issue. exam cor rrr, lungs ctab, abd soft obest ff 2 down LIDYA dressing in place ext nt calves. POD #2 s/p repeat c/s, desires dc home, instructions reviewed. has f/u friday for lidya dressing removal. hgb stable. Documented By: Ольга Carroll MD, FACOG Subjective 29 yo post- day 2 s/p . Ambulation: ambulating normally Voiding: no voiding problems Passing Gas:: Yes Diet Tolerance:: regular diet Lochia:: Small Feeding Type:: breast feeding Current Pain Level:Slight pain. Resting comfortably this AM in NAD. Denies BARRY, CP, SOB, N/V/D, LE pain/swelling. Review of Systems Review of Systems: As per HPI. Physical Exam Physical Exam: General: patient resting comfortably, NAD, non-toxic in appearance, AA&O x 4, answers questions appropriately. Skin: warm, dry, intact HEENT: NC/AT, anicteric sclera, conjunctiva without injection, moist mucus membranes. Heart: +S1/S2, regular, no m/r/g Lungs: equal air entry bilaterally, no rales/rhonchi/wheezes Abd: +BS, soft, NT/ND, uterine fundus firm at umbilicus, caesarean incision C/D/I. Ext: warm, no clubbing/cyanosis or edema, Tony's neg. Results & Data Vital Signs (Past 12 Hours) Vital Signs Temp Pulse Resp BP Pulse Ox O2 Del Method 07/05/25 23:55 36.6 C 82 18 112/73 97 Room Air 07/05/25 19:12 36.7 C 83 18 108/71 97 Room Air Resident Activity Tracking Resident Involvement: Resident Care Provided Care Provided: Adult Hospital Medicine
[2025-07-06 07:36] VITALS: BP 115/82; PULSE 70; TEMP 98.1; O2SAT 98
[2025-07-06] MEDS: guaiFENesin 600 MG TABCR PO SCH (08:57)
[2025-07-06] MEDS: IBUPROFEN 600 MG TAB PO PRN (10:48)
[2025-07-06] MEDS ORDERED: ACETAMINOPHEN 325 MG TAB PO PRN (16:49)
--- NOTE | 2025-07-08 06:58 | Discharge Summary ---
Date of Service July 08, 2025 Admission HPI Per Admitting Provider 29yo with [facility]C 07/09/25 with plans for primary section d/t history of shoulder dystocia. Obesity (BMI 40 and higher @ beginning of ) - 45.1 *Growth US @ 32wks *Weekly NSTs @ 34wks *BMI 40 or greater offer detailed/level II anatomy at [facility] - desires to have an MN *BMI 40 or above offer delivery by [facility]. GDM *Begin monthly Growth US's Hx of shoulder dystocia with first baby - at 36 4/7, baby measuring EFW 93%, AC 95% - will recheck Growth at 36wks gestation C/S SCHEDULED FOR 07/04/[address] CIFUENTES AND [address] LOWERY ASSIST Admission Exam (Per Admitting) Constitutional WD/WN, vitals as above Respiratory normal respiratory effort, lungs clear to auscultation no respiratory distress Cardiovascular Rate/Rhythm: regular rate and regular rhythm Gastrointestinal (Abdomen) Inspection/Auscultation: abdomen normal to inspection Percussion/Palpation: abdomen soft; abdomen nontender Skin no rashes, warm and dry Psychiatric A+Ox3, euthymic affect Discharge Data Consultations 07/04/25 07:06 Consult Anesthesiology Stat Procedures Performed Operation Date: 07/04/25 09:05 Actual Procedures p Section For delivery of live male child at 0944(Bilateral) - Denisa Cifuentes, Hospital Course (1) care following delivery: (2) History of shoulder dystocia in prior : (3) GDM (gestational diabetes mellitus): (4) Prior miscarriage with , antepartum: (5) Obesity affecting , antepartum: Plan 29 yo post- day 2 s/p . Fells well today. Vital signs stable Continue post- care Encourage ambulation and Pain controlled with ibuprofen Hgb stable Discharge home today, follow up with Dr. Cifuentes in 6 weeks. Supervising Physician Co-Signing Physician Notes Resident Physician Supervision Note: I interviewed and examined the patient. Discussed with Dr. Green and agree with findings and plan as documented in the note. Any exceptions or clarifications are listed here: stable doing well. eating, voiding, +flatus, no pain issues. breast feeding, no cp or sob, ambulating without issue. exam cor rrr, lungs ctab, abd soft obest ff 2 down LIDYA dressing in place ext nt calves. POD #2 s/p repeat c/s, desires dc home, instructions reviewed. has f/u friday for lidya dressing removal. hgb stable. Documented By: Ольга Carroll MD, FACOG Coding Level of Care Code None Diagnoses care following delivery Z39.2 History of shoulder dystocia in prior Z87.59 GDM (gestational diabetes mellitus) O24.419 Prior miscarriage with , antepartum O09.299 Obesity affecting , antepartum O99.210
== END 2025-07-06 12:00 | disposition home or self-care (01) | DRG 788 ==
LOC: 4S1 06:55 → EDSTATUS 09:05 → 4E2 13:15